=== PATIENT | female | born 1980 | race Caucasian/White ===

== ENCOUNTER 2018-12-21 09:52 | Observation (INO) ==
--- NOTE | 2018-12-21 09:56 | Emergency Department Note ---
Disposition Clinical Impression: Anemia Qualifiers: Anemia type: unspecified type Qualified Code(s): D64.9 - Anemia, unspecified Disposition: Admitted As Inpatient Condition: Good Referrals: Evette Puentes CNP [Primary Care Provider] - Forms: ED Satisfaction Letter Time of Disposition: 11:27 Recheck wound or abnormal lab - General Chief Complaint: ED Recheck/Abnormal Lab/Rx Stated Complaint: Labs evaluated Time Seen by Provider: 12/21/18 10:12 Source: patient, family Mode of arrival: private vehicle Limitations: no limitations Nursing Notes Reviewed: Yes Vital Signs Reviewed: Yes - History of Present Illness HPI Narrative: Patient arrives with a history of a lab draw yesterday showing a hemoglobin of 7.4. She states she has no physical complaints. She reportedly had a CBC drawn as well as a lipid panel because her previous panel from October 19 did not include the CBC and they wanted to check her lipid panel because she was on Seroquel. She was called that her hemoglobin was 7.4 and she should come to the emergency department for further evaluation. She denies any source of bleeding and states she has a long history of anemia. She has never had this particular anemia testing but she did require one transfusion at age approximately 23 hemoglobin of 5.4. She denies any change to her menstrual cycle and states she does not have periods with a Mirena IUD. She denies any change to her bowels and has not had bloody or black stool. She denies weakness but occasionally has some slight dizziness. She is shortness of breath, chest pain or palpitations. She is not having abnormal dyspnea on exertion. She denies any abdominal or back pain. Pt Subjective Complaint: abnormal lab(s) Symptoms Since Prior Visit: no new symptoms Context: called for abnormal lab result Associated symptoms: none - Related Data Home Medications Medication Instructions Recorded Confirmed Omeprazole [PriLOSEC] 20 mg PO BIDAC 06/02/17 06/02/17 Allergies Allergy/AdvReac Type Severity Reaction Status Date / Time No Known Allergies Allergy Verified 06/02/17 02:28 All systems ED: reviewed and negative except as stated. Past Medical History - Past Medical History Attestation: Yes The following information was validated with the patient. Source: patient, obtained from family, nursing notes reviewed Medical history: Reports: GERD Psychiatric history: Reports: no psych history - Social History Smoking Status: Current every day smoker Smokeless Tobacco Status: No Alcohol use: Reports: none Drug use: Reports: none Physical Exam - General Limitations: no limitations General appearance: alert, in no apparent distress - Head Head exam: atraumatic, normocephalic, normal inspection - Eye Eye exam: Present: normal appearance, PERRL, EOMI - ENT ENT exam: normal exam, normal oropharynx, mucous membranes moist - Neck Neck exam: Present: normal inspection, full ROM, trachea midline - Chest Chest inspection: Present: normal inspection, symmetric chest wall rise - Respiratory Respiratory exam: Present: normal lung sounds bilaterally. Absent: respiratory distress, wheezes, prolonged expiratory phase - Cardiovascular Cardiovascular exam: Present: regular rate, normal rhythm, normal heart sounds - Abdominal Exam Abdominal exam: Present: soft, Non-Tender, normal bowel sounds. Absent: tenderness, distention, guarding, rebound, rigidity - Extremities Exam Extremities exam: Present: normal inspection, full ROM, normal capillary refill, calf tenderness. Absent: tenderness, pedal edema - Expanded Lower Extremity Exam Neurovascular/Tendon exam: Present: normal capillary refill. Absent: motor deficit, sensory deficit, tendon deficit Gait: observed and normal - Back Exam Back exam: Present: normal inspection, full ROM. Absent: tenderness - Neurological Exam Neurological exam: Present: alert, oriented X3 - Psychiatric Psychiatric exam: Present: normal affect, normal mood. Absent: agitated, anxious - Skin Skin exam: Present: warm, dry, intact, normal color. Absent: diaphoresis, pallor Course Course Narrative: Care has been discussed with Dr. Willams as well as patient. She will be brought in for transfusion as well as laboratory testing for etiologies for her anemia. Verbal orders have been obtained. Vital Signs Temperature 98.2 F 12/21/18 09:54 Pulse Rate 83 12/21/18 09:54 Respiratory Rate 18 12/21/18 09:54 Blood Pressure 107/53 12/21/18 09:54 O2 Sat by Pulse Oximetry 96 12/21/18 09:54 Temperature 98.2 F 12/21/18 09:59 Pulse Rate 83 12/21/18 09:59 Respiratory Rate 16 12/21/18 09:59 Blood Pressure 107/53 12/21/18 09:59 O2 Sat by Pulse Oximetry 96 12/21/18 09:59 Oxygen Delivery Oxygen Delivery Room Air Recheck wound or abnormal lab - Lab Data Lab results reviewed: Yes I reviewed the patient's lab results. Result diagrams: 12/21/18 10:17 12/21/18 10:17 Lab Results 12/21/18 12/21/18 12/21/18 Range/Units 10:17 10:17 10:17 WBC 8.2 (4.3-11.1) K/mcL RBC 3.13 L (3.82-4.97) M/mcL Hgb 7.5 L (11.5-15.4) g/dL Hct 24.5 L (35.3-44.9) % MCV 78.3 L (83.0-100.0) fL MCH 24.0 L (28.0-33.3) pg MCHC 30.6 L (31.6-35.5) g/dL RDW 14.0 (11.5-14.5) % Plt Count 449 H (140-400) K/mcL MPV 10.0 (9.4-12.4) fL Immature Gran % 1.0 (0-4) % Seg Neutrophils % 71.5 % Lymphocytes % 18.2 % Monocytes % 6.9 % Eosinophils % 1.8 % Basophils % 0.6 % Neutrophils # 5.8 (1.6-8.9) K/mcL Lymphocytes # 1.5 (0.6-4.6) K/mcL Monocytes # 0.6 (0.0-1.3) K/mcL Eosinophils # 0.2 (0.0-0.6) K/mcL Basophils # 0.1 (0.0-0.2) K/mcL PT 10.7 (9.4-12.1) Seconds INR 0.9 APTT 26.5 (26.0-36.0) Seconds Sodium 138 (136-145) mEq/L Potassium 4.2 (3.5-5.1) mEq/L Chloride 106 (98-107) mEq/L Carbon Dioxide 27 (23-29) mEq/L BUN 16 (6-20) mg/dL Creatinine 0.99 (0.60-1.20) mg/dL Est GFR ( Amer) > 60 (> 60) Est GFR (Non-Af Amer) > 60 (> 60) BUN/Creatinine Ratio 16 (6-26) Glucose 91 (70-105) mg/dL Calculated Osmolality 287 (280-300) Calcium 8.7 (8.6-10.3) mg/dL Blood Type Antibody Screen 12/21/18 Range/Units 10:17 WBC (4.3-11.1) K/mcL RBC (3.82-4.97) M/mcL Hgb (11.5-15.4) g/dL Hct (35.3-44.9) % MCV (83.0-100.0) fL MCH (28.0-33.3) pg MCHC (31.6-35.5) g/dL RDW (11.5-14.5) % Plt Count (140-400) K/mcL MPV (9.4-12.4) fL Immature Gran % (0-4) % Seg Neutrophils % % Lymphocytes % % Monocytes % % Eosinophils % % Basophils % % Neutrophils # (1.6-8.9) K/mcL Lymphocytes # (0.6-4.6) K/mcL Monocytes # (0.0-1.3) K/mcL Eosinophils # (0.0-0.6) K/mcL Basophils # (0.0-0.2) K/mcL PT (9.4-12.1) Seconds INR APTT (26.0-36.0) Seconds Sodium (136-145) mEq/L Potassium (3.5-5.1) mEq/L Chloride (98-107) mEq/L Carbon Dioxide (23-29) mEq/L BUN (6-20) mg/dL Creatinine (0.60-1.20) mg/dL Est GFR ( Amer) (> 60) Est GFR (Non-Af Amer) (> 60) BUN/Creatinine Ratio (6-26) Glucose (70-105) mg/dL Calculated Osmolality (280-300) Calcium (8.6-10.3) mg/dL Blood Type O NEGATIVE Antibody Screen NEGATIVE
[2018-12-21 10:31] LABS: Basophils # 0.1 K/mcL (0.0-0.2); Basophils % 0.6 %; Eosinophils # 0.2 K/mcL (0.0-0.6); Eosinophils % 1.8 %; Hematocrit 24.5 % (35.3-44.9); Hemoglobin 7.5 g/dL (11.5-15.4); Lymphocytes # 1.5 K/mcL (0.6-4.6); Lymphocytes % 18.2 %; Mean Corpuscular HGB Conc 30.6 g/dL (31.6-35.5); Mean Corpuscular Volume 78.3 fL (83.0-100.0); Monocytes # 0.6 K/mcL (0.0-1.3); Monocytes % 6.9 %; Neutrophils # 5.8 K/mcL (1.6-8.9); Platelet Count 449 K/mcL (140-400); Red Blood Count 3.13 M/mcL (3.82-4.97); Segmented Neutrophils % 71.5 %; White Blood Count 8.2 K/mcL (4.3-11.1)
[2018-12-21 10:33] LABS: INR 0.9; Prothrombin Time 10.7 Seconds (9.4-12.1)
[2018-12-21 10:35] LABS: Activated Partial Thrombo Time 26.5 Seconds (26.0-36.0)
[2018-12-21 10:39] LABS: BUN/Creatinine Ratio 16 (6-26); Blood Urea Nitrogen 16 mg/dL (6-20); Calcium 8.7 mg/dL (8.6-10.3); Carbon Dioxide 27 mEq/L (23-29); Chloride 106 mEq/L (98-107); Glucose 91 mg/dL (70-105); Osmolality,Calculated 287 (280-300); Potassium 4.2 mEq/L (3.5-5.1); Sodium 138 mEq/L (136-145); eGFR For African Americans > 60 (> 60); eGFR For Non-African Americans > 60 (> 60)
[2018-12-21] MEDS ORDERED: Ondansetron ODT 4 MG TAB.RAPDIS SL PRN (12:52)
[2018-12-21] MEDS ORDERED: 0.9 % Sodium Chloride 1,000 ML IVC SCH (12:52)
[2018-12-21] MEDS ORDERED: Acetaminophen 325 MG TABLET PO ONE (12:52)
[2018-12-21] MEDS ORDERED: Naloxone 0.4 MG/ML INJ IVP PRN (12:52)
[2018-12-21] MEDS ORDERED: Mag Hydrox/Al Hydrox/Simeth 30 ML UDC PO PRN (12:52)
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
[2018-12-21 17:46] LABS: Folate 17.6 ng/mL (3.0-16.0)
[2018-12-21 18:15] LABS: Ferritin < 8 ng/mL (10-120); Iron < 10 mcg/dL (50-170); Transferrin 353 mg/dL (203-362)
[2018-12-21] MEDS ORDERED: 0.9 % Sodium Chloride 250 ML ONE (19:59)
[2018-12-22 05:28] LABS: Basophils % 0.5 %; Eosinophils # 0.2 K/mcL (0.0-0.6); Eosinophils % 2.1 %; Hematocrit 31.5 % (35.3-44.9); Hemoglobin 9.9 g/dL (11.5-15.4); Immature Granulocytes % 0.2 % (0-4); Lymphocytes # 1.2 K/mcL (0.6-4.6); Lymphocytes % 13.9 %; Mean Corpuscular HGB Conc 31.4 g/dL (31.6-35.5); Mean Corpuscular Hemoglobin 25.1 pg (28.0-33.3); Mean Corpuscular Volume 79.9 fL (83.0-100.0); Monocytes # 0.7 K/mcL (0.0-1.3); Monocytes % 7.7 %; Neutrophils # 6.5 K/mcL (1.6-8.9); Platelet Count 422 K/mcL (140-400); Red Blood Count 3.94 M/mcL (3.82-4.97); Red Cell Distribution Width 14.1 % (11.5-14.5); Segmented Neutrophils % 75.6 %; White Blood Count 8.6 K/mcL (4.3-11.1)
[2018-12-22] MEDS ORDERED: Acetaminophen 650 MG RECTAL SUPP RC PRN (10:02)
[2018-12-22] MEDS ORDERED: Acetaminophen 325 MG TABLET PO PRN (10:07)
[2018-12-22] MEDS ORDERED: Cyanocobalamin (B-12) 1,000 MCG/ML VIAL IM ONE (10:23)
[2018-12-22 11:25] LABS: Bilirubin,Urine Negative (Negative); Blood,Urine Negative (Negative); Clarity,Urine Clear (Clear); Color,Urine Yellow (Yellow); Glucose,Urine (UA) Normal (Normal); Ketones,Urine Negative (Negative); Leukocyte Esterase,Urine Negative (Negative); Nitrite,Urine Negative (Negative); PH,Urine 7.5 pH Units (5.0-8.0); Protein,Urine Negative (Neg-Trace); Urobilinogen,Urine Normal (Normal)
[2018-12-22] MEDS ORDERED: IRON DEXTRAN COMPLEX IVPB ONE (13:00)
[2018-12-22] MEDS ORDERED: SODIUM CHLORIDE 0.9% IVPB ONE (13:00)
[2018-12-22 14:32] VITALS: BP 104/64
--- NOTE | 2018-12-22 15:10 | Discharge Summary ---
Date of Encounter: 12/22/18 Time of Encounter: 15:03 - Discharge Diagnosis (1) Anemia Priority: Primary Status: Acute Qualifiers: Anemia type: unspecified type Qualified Code(s): D64.9 - Anemia, uns pecified Hospital course: Ms. Xavier is a 38 year old female who was directed to come to emergency room by staff at [facility] for further evaluation after labs drawn the previous day showed hemoglobin 7.4. Anemia was confirmed in emergency room with hemoglobin 7.5. She was admitted for blood transfusion and further evaluation. Initial orders were written by the emergency room physician. I saw her on December 21 and performed a history and physical. She was given 2 units packed red blood cells transfusion. Hemoglobin flaco to 9.9 by the following day. Anemia testing showed iron < 10, transferrin 353, ferritin < 8, B12 211, and folate 17.6. She was given a B12 injection and will start oral B12 supplement at discharge. She was given iron dextran IV infusion. I explained to her that her PCP can order further workup to evaluate the etiology of the iron deficiency and monitor labs regarding her iron and B12 status. On the afternoon of December 22 she felt improved and stable for discharge home. She will follow with her PCP Evette Puentes CNP within 1 week. - Time Spent with Patient Total time spent providing and/or coordinating discharge services: - Discharge Medications Prescriptions: New Cyanocobalamin (B-12) [Vitamin B12] 1,000 mcg PO DAILY #30 tablet Continued Omeprazole [PriLOSEC] 20 mg PO BIDAC Home Medications: Omeprazole [PriLOSEC] 20 mg PO BIDAC 06/02/17 [History] Cyanocobalamin (B-12) [Vitamin B12] 1,000 mcg PO DAILY #30 tablet 12/22/18 [Rx] Allergies/Adverse Reactions: Allergy/AdvReac Type Severity Reaction Status Date / Time No Known Allergies Allergy Verified 06/02/17 02:28 Date of admission: 12/21/18 12:50 Primary care physician: Evette Puentes - Constitutional Vitals: Temp Pulse Resp BP Pulse Ox 98.6 F 68 16 104/64 97 12/22/18 14:31 12/22/18 14:31 12/22/18 14:31 12/22/18 14:31 12/22/18 14:31 - Patient Status Disposition: Home, Self-Care Condition: Good - Discharge Instructions Follow Up With: Evette Puentes CNP [Primary Care Provider] - 1 week - Diet and Activity Activity: resume usual activities as tolerated Diet: advance to your usual diet
== END 2018-12-22 15:30 | disposition home or self-care (01) ==
LOC: EMEROOPIK 09:52 → INPPIK 09:52
PROVIDERS: ADMIT Internal Medicine; ATTEND Internal Medicine